=== PATIENT | male | born 1965 | race Caucasian/White ===

== ENCOUNTER → 2016-11-20 | Outpatient (CLI) | payer OTHER ==
[~2016-11-20] VITALS: Ht 185.4 cm; Wt 181.7 kg
[~2016-11-20] MED LIST: ACETAMINOPHEN-1 EAC1 PO; ALLOPURINOL 30300 M2 PO; AMLODIPINE BESY10 MG PO; ASPIRIN EC325 MG PO; ATORVASTATIN CA40 MG PO; BUSPIRONE HCL10 MG PO; CARVEDILOL12.5 MG PO; ERYTHROMYCIN E3.5 G3 OPHTHALMIC; FLOMAX0.4 MG PO; HYDROCODONE-AP1 EAC6 PO; IBUPROFEN 800800 M1 PO; LOPRESSOR25 PO; NABUMETONE 500500 M1 PO; NEURONTIN 300300 M1 PO; NORFLEX100 MG PO; PRED FORTE 1% EY5 M1 OP; PRILOSEC 20 MG20 MG PO; PRILOSEC20 MG PO; PROZAC20 MG PO; RITALIN20 MG PO
--- NOTE | ~2016-11-20 | HPC ---
[facility] [place] [address] PAIN MANAGEMENT CONSULTATION Name: FLAQUITA BOOTH Room #: [facility].#: [id number] Admission: 11/20/16 Attend Phys: Paul Salgado DO Discharge: Date of : 67 Report #: [id number] THIS REPORT FOR: //name// CC: Lucinda Salgado DATE OF SERVICE: 11/20/2016 REFERRING PHYSICIAN: Lucnida Chávez MD CHIEF COMPLAINT: Low back pain, right lower extremity pain with paresthesias. HISTORY OF PRESENT ILLNESS: As you know, the patient is a 51-year-old male who returns today in followup visit stating he is having increasing right low back pain, right lower extremity pain, now involving his entire right leg. He states his pain is aching, constant in sensation, exacerbated with activity, walking, improves with rest and lying down. He places current pain score at 8/10. The patient has been referred back to our service to trial once again a lumbar epidural injection under fluoroscopic guidance in hopes of improving pain. He is denying new injury, new trauma, or changes in medical history since our last visit except for the progression of his symptoms in the right lower extremity. ALLERGIES: No known drug allergies. CURRENT MEDICATIONS: Tamsulosin, amlodipine, ibuprofen, gabapentin, omeprazole, hydrocodone, carvedilol, atorvastatin, aspirin, buspirone, allopurinol, fluoxetine, and methylphenidate. SOCIAL HISTORY: The patient continues to smoke half pack tobacco per day and has done so for greater than 25 years. Denies IV or illicit drug use, admits to approximately 3 alcoholic beverages per week. He is working, not receiving workmen's compensation. He is unaccompanied at today's visit. IMAGING: No new imaging available. PHYSICAL EXAMINATION: VITAL SIGNS: Blood pressure 130/66, pulse 73, respiratory rate 18 and unlabored. The patient is 96% on room air, height 6 feet 1 inch tall, weight 400.6 pounds, and BMI calculated 52.9. GENERAL: Well-developed, well-nourished, well-hydrated, morbidly obese 51-year-old male, appearing stated age, placing current pain score at 8/10. HEENT: Normocephalic, atraumatic. Pupils are equal, round, and reactive to light. Extraocular muscles are intact. EXTREMITIES: Show no clubbing, no cyanosis, and no edema. MUSCULOSKELETAL: Seated straight leg raising negative[place] [address] PAIN MANAGEMENT CONSULTATION Name: FLAQUITA BOOTH Room #: [facility].#: [id number] Admission: 11/20/16 Attend Phys: Paul Salgado DO Discharge: Date of : 67 Report #: [id number] raising positive right. Brock's test negative. Modified Gaenslen's positive for axial low back pain. Ankle clonus is negative. Babinski is negative. Brock's test positive on the right. ASSESSMENT: 1. Lumbar radiculopathy. 2. Lumbosacral spondylosis with radiculopathy. 3. Right hip pain. 4. Chronic intractable pain. PLAN: 1. The patient has returned today in followup visit per the request of his primary team to undergo a repeat lumbar epidural injection under fluoroscopic guidance. The patient and I discussed at length the risks and benefits of a lumbar epidural injection. These risks include, but are not necessarily limited to bleeding, bruising, infection, worsening of pain, no relief of pain, also risk of temporary or permanent muscle weakness, temporary or permanent nerve damage, possible paralysis and . The patient states understood and wished to proceed. 2. No medication changes were made at today's visit. The patient will continue current medical therapy as previously prescribed. 3. We will see the patient back in followup visit on an as needed basis for the next in a series of epidural injections. PROCEDURE NOTE DESCRIPTION OF PROCEDURE: L5-S1 right paramedian epidural steroid injection under fluoroscopic guidance. After obtaining written consent, the patient was taken back to fluoroscopy suite, placed in prone position with pillow under abdomen to decrease lumbar lordosis. Skin overlying the lumbosacral area was prepped and draped in aseptic fashion. Lumbar intervertebral spaces were identified by AP fluoroscopy. Skin and subcutaneous tissue overlying target site of injection was anesthetized with 3 mL of 1% lidocaine. A 20-gauge 4-1/2-inch Tuohy needle advanced under fluoroscopic guidance towards the epidural space using right paramedian approach. Epidural space identified using loss of resistance to air technique. After negative aspiration for heme or cerebrospinal fluid, 1 mL of Omnipaque was injected. Lumbar epidurogram was confirmed using both AP and lateral fluoroscopy. After negative aspiration for heme or cerebrospinal fluid, 5 mL of a solution containing 2 mL 40 mg per mL, 80 mg total triamcinolone, 3 mL lidocaine 1% was injected slowly. Needle retracted [facility], needle tract flushed 3 mL 1% lidocaine. Needle then removed. Sterile bandage placed over injection site. No new motor deficits present in lower extremity following the procedure. [address] [address] PAIN MANAGEMENT CONSULTATION Name: FLAQUITA BOOTH Room #: [facility].#: [id number] Admission: 11/20/16 Attend Phys: Paul Salgado DO Discharge: Date of : 67 Report #: [id number] The patient tolerated the procedure well, carefully escorted to the recovery in stable condition. No apparent complications. After meeting discharge criteria, the patient discharged home. <ELECTRONICALLY SIGNED> By: Paul Salgado DO 11/30/16 0705 1303 1403 Paul Salgado DO /nt
[2016-11-20 08:45] VITALS: BP 130/66
== END | disposition home or self-care (01) ==
LOC: PAIN 07:03
DX: M54.16 Radiculopathy, lumbar region (principal); M47.27 Other spondylosis with radiculopathy, lumbosacral region; G89.29 Other chronic pain; M25.551 Pain in right hip; Z68.43 Body mass index [BMI] 50.0-59.9, adult; F17.200 Nicotine dependence, unspecified, uncomplicated; Z79.899 Other long term (current) drug therapy

== ENCOUNTER → 2017-01-31 | Outpatient (CLI) | payer OTHER ==
--- NOTE | ~2017-01-31 | 2DMMODE ---
[facility] [address] [place] [address] 2 D/M-MODE ECHOCARDIOGRAM Name: LEOBARDOFLAQUITABLAKE MARIANO [facility] [id number] Admission: 01/31/17 Attend Phys: Luis Loco MD Discharge: Date of : 67 Date of Service: 01/31/17 0947 Report #: [id number] THIS REPORT FOR: //name// APPROVED REPORT Study performed: 01/31/2017 08:56:55 EXAM: Comprehensive 2D, Doppler, and color-flow Echocardiogram Patient Location: Out-Patient Status: routine BSA: 2.81 HR: 63 bpm BP: 124/60 mmHg Rhythm: NSR/PVC's Other Information Study Quality: Adequate Indications CAD Hx: HTN, HLP, morbid obesity 2D Dimensions RVDd: 41.31 mm LVEF(%): 73.38 (>50%) IVSd: 11.15 (7-11mm) LVOT Diam: 23.24 (18-24mm) LVDd: 56.55 mm PWd: 11.10 (7-11mm) Ascending Ao: 34.80 (22-36mm) LVDs: 32.28 (25-40mm) Aortic Root: 34.83 mm Cotter's LVEF: 73.38 % Volumes Left Atrial Volume (Systole) Single Plane 4CH: 78.73 mL Single Plane 2CH: 100.42 mL LA ESV Index: 34.00 mL/m2 Aortic Valve AoV Peak Tommie.: 3.00 m/s AO Peak Gr.: 36.02 mmHg LVOT Max P.03 mmHg AO Mean Gr.: 16.84 mmHg AO V2 Mean: 1.92 m/s LVOT Max V: 1.33 m/s AO V2 VTI: 62.79 cm TRISTIAN Vmax: 1.87 cm2 [facility] [place] [address] 2 D/M-MODE ECHOCARDIOGRAM Name: FLAQUITA BOOTH [facility] [id number] Admission: 01/31/17 Attend Phys: Luis Loco MD Discharge: Date of : 67 Date of Service: 01/31/17 0947 Report #: [id number] Mitral Valve E/A Ratio: 1.3 MV Decel. Time: 189.96 ms MV E Max Tommie.: 1.23 m/s MV A Tommie.: 0.92 m/s MV PHT: 55.09 ms IVRT: 55.36 ms Pulmonary Valve PV Peak Tommie.: 1.22 m/s PV Peak Gr.: 5.99 mmHg Pulmonary Vein P Vein S: 0.82 m/s P Vein A: 0.32 m/s P Vein D: 0.72 m/s P Vein A Dur.: 115.3 msec P Vein S/D Ratio: 1.14 Tricuspid Valve TR Peak Tommie.: 2.45 m/s RAP Estimate: 5.00 mmHg TR Peak Gr.: 24.09 mmHg PA Pressure: 29.00 mmHg Left Ventricle The left ventricle is normal size. There is normal LV segmental wall motion. There is normal left ventricular wall thickness. Left ventricular systolic function is normal. LVEF is 60-65%. Moderate diastolic dysfunction is present (pseudonormal filling). Right Ventricle Right ventricle is at the upper limits of normal. The right ventricular systolic function is normal. Atria Left atrium is mildly dilated. Right atrium is at the upper limits of normal. Aortic Valve Aortic valve is calcified. Trace aortic regurgitation. Mild aortic stenosis, with maximum pressure gradient of 36 mmHg and mean pressure gradient of 17 mmHg. Mitral Valve Mitral valve leaflets are mildly thickened. Trace mitral regurgitation. Tricuspid Valve The tricuspid valve is normal in structure. Trace to mild tricuspid [address] [address] 2 D/M-MODE ECHOCARDIOGRAM Name: FLAQUITA BOOTH [facility] [id number] Admission: 01/31/17 Attend Phys: Luis Loco MD Discharge: Date of : 67 Date of Service: 01/31/17 0947 Report #: [id number] regurgitation. Estimated PAP is 29mmHg. Pulmonic Valve The pulmonary valve is normal in structure. Trace pulmonic regurgitation. Great Vessels The aortic root is normal in size. The ascending aorta is normal in size. IVC is normal in size and collapses >50% with inspiration. Pericardium There is no pericardial effusion. <Conclusion> The left ventricle is normal size. Left ventricular systolic function is normal. Left atrium is mildly dilated. Mild aortic stenosis, with maximum pressure gradient of 36 mmHg and mean pressure gradient of 17 mmHg. Trace mitral regurgitation. Trace to mild tricuspid regurgitation. Estimated PAP is 29mmHg. <ELECTRONICALLY SIGNED> By: Luis Loco MD 01/31/1747 6 6 Luis Loco MD /INF
== END ==
LOC: CV 08:46
DX: I25.10 Atherosclerotic heart disease of native coronary artery without angina pectoris (principal); I10 Essential (primary) hypertension; I35.0 Nonrheumatic aortic (valve) stenosis

== ENCOUNTER 2017-04-25 05:17 | Day surgery (SDC) | payer OTHER ==
[~2017-04-25] VITALS: Ht 185.4 cm; Wt 179.2 kg
--- NOTE | ~2017-04-25 | O ---
[facility] [place] [address] [place] [address] OPERATIVE REPORT Name: LEOBARDOFLAQUITA MARIANO Room #: [facility]..#: [id number] Admission: 04/25/17 Attend Phys: Pratik De La Torre MD, F Discharge: 04/26/17 Date of : 67 Report #: [id number] THIS REPORT FOR: //name// CC: Lucinda De La Torre DATE OF SERVICE: 04/25/2017 SURGEON: Pratik De La Torre MD. WORKERS COMPENSATION CLAIMS SPECIALIST: Francia Dmuont MD. PREOPERATIVE DIAGNOSES: 1. Super morbid obesity (body mass index 51). 2. Coronary artery disease. 3. Gastroesophageal reflux disease. 4. Hypertension. 5. Sleep apnea. 6. Hyperlipidemia. 7. Depression. 8. Arthritis. POSTOPERATIVE DIAGNOSES: 1. Super morbid obesity (body mass index 51). 2. Coronary artery disease. 3. Gastroesophageal reflux disease. 4. Hypertension. 5. Sleep apnea. 6. Hyperlipidemia. 7. Depression. 8. Arthritis. PROCEDURE: Laparoscopic sleeve gastrectomy with EGD. ANESTHESIA: General endotracheal anesthesia and local anesthetic. ESTIMATED BLOOD LOSS: 10 mL. SPECIMEN: Lateral stomach. COMPLICATIONS: None appreciated. INDICATIONS FOR PROCEDURE: This is a 52-year-old male patient standing 6 feet 1 inch and weighing 396 pounds at his most recent office visit with a BMI of 51. He has tried numerous weight loss programs and plans including specialized diets, exercises and [id number] medications. Any amount of weight he has [facility] [address] [place] [address] OPERATIVE REPORT Name: FLAQUITA BOOTH Room #: [facility].#: [id number] Admission: 04/25/17 Attend Phys: Pratik De La Torre MD, F Discharge: 04/26/17 Date of : 67 Report #: [id number] lost, he has quickly regained plus additional weight after stopping the modality. He has numerous weight associated comorbid conditions and complaints. He has been cleared from a multidisciplinary standpoint and presents now for laparoscopic sleeve gastrectomy with EGD. OPERATIVE FINDINGS: On EGD, the patient's esophagus was normal down to the GE junction and Z-line measured at 40 cm from the teeth. There was no evidence for hiatal hernia. The stomach and duodenum to the third portion were also normal without polyps, masses, diverticula, or ulcers. Likewise, on retroflexion of the scope, there was no evidence for hiatal hernia. Laparoscopically, the patient had an enlarged liver and stomach. His small bowel and colon in the surrounding area appeared otherwise normal. The gastric sleeve staple line was located 4 cm lateral/proximal to the pylorus, 3 cm lateral to the incisura of the stomach, and 1 cm lateral to the GE junction. There was no evidence for staple line leak. The leak test was negative, whereby no air bubbles were seen forming in the Tisseel immediately after its application with insufflation of carbon dioxide into the gastric sleeve. Endoluminally, there was no bleeding within the sleeve and the contour of the sleeve was smoothe without sharp angles. No other significant intra-abdominal pathology was seen. The excised stomach held 1250 mL of fluid on the back table. At the conclusion of the operation, there was no evidence for iatrogenic injury. The sponge, needle and instrument counts were correct. The patient tolerated the procedure well and was returned to the recovery room in stable condition. DESCRIPTION OF PROCEDURE IN DETAIL: After the benefits and risks of the procedure were explained to the patient which include but are not limited to risks of bleeding, infection, postoperative pain, postoperative expectations and risks of DVT and pulmonary embolus, informed consent was obtained. The patient was identified in the preoperative holding area. The patient was given IV antibiotics as documented in the chart in line with SCIP protocol. The patient was then taken to the operating room and was placed in the supine position. The patient was given IV sedation and was intubated without incident. SCDs were placed on the patient's bilateral lower extremities prior to induction of anesthesia. The patient had been placed in the modified low lying dorsal lithotomy position in stirrups on the beanbag. The beanbag and the patient were taped to the bed to secure the patient. A time-out was then performed to correctly identify the patient and procedure. An orogastric tube was placed by anesthesia. A bite block was placed and the fiberoptic EGD scope was passed into the patient's oropharynx, down the esophagus, into the stomach, and into the third portion of the duodenum. Findings are as noted above. The scope was slowly withdrawn into the antrum and the scope was retroflexed. The hiatus was visualized. The scope was then straightened and the end of the gastroscope was placed at the pylorus. The [facility] [address] [place] [address] OPERATIVE REPORT Name: FLAQUITA BOOTH Room #: [facility].R.#: [id number] Admission: 04/25/17 Attend Phys: Pratik De La Torre MD, F Discharge: 04/26/17 Date of : 67 Report #: [id number] stomach was decompressed with the scope. The patient's abdomen was then prepped and draped in the standard sterile fashion with surgical prep. Local anesthetic was infiltrated into the skin and subcutaneous tissue in the left supraumbilical area where a sharp #15-blade scalpel was used to make a 5-mm incision. The 5-mm Visiport was placed intraperitoneally with the 5-mm 0-degree angled laparoscope. Pneumoperitoneum was then achieved with insufflation of carbon dioxide to 15 mmHg. A 5-mm 30-degree angled laparoscope was then inserted. The 15-mm port was placed in the right supraumbilical area after local anesthetic was infiltrated into the skin and subcutaneous tissue and an appropriately sized incision was made. Two additional 5 mm ports were placed in the left abdomen after local anesthetic was infiltrated and incisions were made. All ports were placed under direct visualization. The patient was then placed in reverse Trendelenburg position. Local anesthetic was infiltrated into the skin and subcutaneous tissue in the subxiphoid area and a 5-mm incision was made through which a 5-mm obturator was passed into the abdominal cavity through the fascia to create a passageway for the Fox liver retractor. The retractor was placed to retract the liver anteriorly. The retractor was held in place with the [employer] apparatus. All abdominal adhesions were then taken down with blunt dissection, sharp dissection and judicious use of the ultrasonic dissector. The gastrosplenic ligament and short gastric vessels were then divided using the ultrasonic dissector with appropriate traction. Bleeding points were made hemostatic with the ultrasonic dissector. Dissection was carried proximally up to the left martell of the diaphragm. The distal end point of dissection was then measured at 4 cm proximal to the pylorus. The short gastric vessels and gastrocolic ligaments were dissected to that level. The stomach was then rotated medially to visualize any posterior attachments/adhesions to the stomach. The adhesions were dissected with a combination of sharp dissection and use of the ultrasonic dissector. The endoscope was then slightly withdrawn to place it along the lesser curvature of the stomach. Suction was applied to the orogastric tube which was then removed, leaving the endoscope in place as a 34-Lao bougie. The gastric sleeve was then created. Two black loads of the powered endoscopic ADAM stapler buttressed with Kathy-Strips were used to staple and divide the stomach 4 cm proximal to the pylorus moving proximally. Additional green loads buttressed with Kathy-strips were used to staple off the remainder of the stomach using the endoscope as the bougie. Care was taken to ensure that greater than 3 cm of space was present between the incisura and the staple line. The stomach was fully transected and placed in the right upper quadrant of the abdomen for later removal. 14 ml of Tisseel was applied to the entire length of the staple line with the [employer] aerosolizer to fully ensure hemostasis and to help seal the staple line. [address] [address] OPERATIVE REPORT Name: FLAQUITA BOOTH Room #: [facility].R.#: [id number] Admission: 04/25/17 Attend Phys: Pratik De La Torre MD, F Discharge: 04/26/17 Date of : 67 Report #: [id number] The leak test was performed next. The sleeve was insufflated with the endoscope which was slowly withdrawn immediately after application of the Tisseel. No air bubbles were seen in the Tisseel laparoscopically. Endoluminally, no bleeding was seen. The stomach was fully decompressed and the scope was slowly withdrawn. The Fox liver retractor was then loosened from the [employer] apparatus and it was removed without difficulty. The stomach was then removed from the patient's body through the 15-mm port under direct visualization. A small amount stretching of the fascia was required to create an opening large enough for removal of the stomach. After its removal, the 15-mm port site fascial opening was closed with an 0-PDS suture using the Surjit-Kiko laparoscopic fascial closure device. All ports were removed after the abdominal cavity was desufflated. The fascial suture was tied. Interrupted subcuticular 4-0 Monocryl sutures and Dermabond were used to close all skin incisions. The patient tolerated the procedure well. The patient was awakened, extubated and taken to the recovery room in stable condition with no apparent intraoperative complications. <ELECTRONICALLY SIGNED> By: Pratik De La Torre MD, FACS 05/03/17 1007 1516 1546 Pratik De La Torre MD, FACS /nt
--- NOTE | ~2017-04-25 | S ---
[facility] [place] [address] [place] [address] SURGICAL PATH RPT PROCEDURE Name: FLAQUITA BOOTH MONTSERRAT Room #: [facility] M.R.#: [id number] Admission: 04/25/17 Date of : 67 Discharge: 04/26/17 Report #: [id number] Path Case #: [id number] PATHOLOGY REPORT COLLECTION DATE: 04/25/2017 RECEIVED DATE: 04/25/2017 SUBMITTING PHYS: Dr. Pratik De La Torre OTHER PHYS: Dr. Lucinda Chávez SPECIMEN(S) RECEIVED: A.Gastric sleeve * * * * * * * * * * * * FINAL DIAGNOSIS: Stomach, "gastric sleeve", partial gastrectomy: - Portion of stomach with focal mild chronic inflammation. (SKM:[facility]; 04/26/2017) PATHOLOGIST: Rolo Horn M.D. REPORT ELECTRONICALLY SIGNED BY: Rolo Horn M.D. DATE/TIME: 04/26/2017 14:26 * * * * * * * * * * * * GROSS PATHOLOGY: The specimen is received in formalin, labeled "Flaquita Booth, gastric sleeve". Received is a partial gastrectomy specimen with a stapled margin of resection measuring 24.4 x 5.5 cm in greatest dimensions. The serosal surface is pink-mi, smooth, and dusky. Opening the specimen reveals a pink-mi mucosa displaying is normal architectural folds. No polyps or mass lesions identified. The specimen is submitted representatively in cassettes A1-A3. (SDY; 04/25/2017) CLINICAL HISTORY: Morbid obesity INITIAL CPT CODE(S): A; 99430 Professional services performed by [facility] at [facility] [address], [place] [address] Technical services performed by [facility] at [address] [place] [address] [id number] [facility] [address] [place] [address] SURGICAL PATH RPT PROCEDURE Name: FLAQUITA BOOTH Room #: [facility] [place]#: [id number] Admission: 04/25/17 Date of : 67 Discharge: 04/26/17 Report #: [id number] Path Case #: [id number] [facility] [address] [address] PHONE: [phone] DIRECTOR: Vickey Valerio M.D. * * * END OF REPORT * * *
[~2017-04-25 05:17] MED LIST changes: +NORCO 5-325 TA1 EACH PO
[2017-04-25 07:04] VITALS: BP 145/88
[2017-04-25 12:00] VITALS: BP 159/99
[2017-04-25 13:00] VITALS: BP 157/100
[2017-04-25 14:00] VITALS: BP 157/91
[2017-04-25 15:00] VITALS: BP 154/92
[2017-04-25 20:00] VITALS: BP 154/98
[2017-04-26] VITALS: BP 151/98
[2017-04-26 04:00] VITALS: BP 148/87
[2017-04-26 05:35] LABS: HEMATOCRIT 39.8 % (42.0-52.0); HEMOGLOBIN 13.9 gm/dL (14.0-18.0); MCH 32.1 pg (26.0-34.0); MCHC 34.8 g/dL (28.0-37.0); MCV 92.1 fL (80.0-100.0); PLATELET COUNT 212 thou/uL (150-400); RBC 4.32 mil/uL (4.50-6.00); RDW 13.4 % (10.5-14.5); WBC 14.6 thou/uL (4.0-11.0)
[2017-04-26 05:52] LABS: CALCIUM 9.3 mg/dL (8.5-10.1); CREATININE 0.8 mg/dL (0.7-1.3); POTASSIUM 3.4 mmol/L (3.5-5.1)
[2017-04-26 06:03] LABS: ABSOLUTE NEUTROPHILS 12.7 thou/uL (1.4-8.2); ATYPICAL LYMPHS 1 %
[2017-04-26 08:00] VITALS: BP 153/99
[2017-04-26] MEDS ORDERED: HYDROCODONE-ACE15 ML PO (10:57)
[2017-04-26 11:10] VITALS: BP 153/99
[2017-08-21] MEDS ORDERED: HYDROCHLOROTH12.5 M1 PO (11:59)
[2017-08-21] MEDS ORDERED: MAG PO (12:00)
[2017-08-21] MEDS ORDERED: MULTIVITAMINS1 EAC7 PO (12:00)
[2017-08-21] MEDS ORDERED: VITAMIN D3 PO (12:00)
[2017-08-21] MEDS ORDERED: VITAMIN C PO (12:00)
[2017-08-21] MEDS ORDERED: IRON PO (12:00)
[2017-08-21] MEDS ORDERED: VITAMIN B-12500 MCG PO (12:00)
[2017-08-28] MEDS ORDERED: ASPIR 8181 MG PO (13:44)
== END 2017-04-26 11:35 | disposition home or self-care (01) ==
LOC: TBA 05:17 → OR 05:17 → 4N 09:56 → OR 10:11 → ENTRNSPT 04-26 11:20 → EDTRNSPTSTS 04-26 11:32 → OR 04-26 11:35
PROVIDERS: Surgery
DX: E66.01 Morbid (severe) obesity due to excess calories (principal); K21.9 Gastro-esophageal reflux disease without esophagitis; I11.9 Hypertensive heart disease without heart failure; I25.10 Atherosclerotic heart disease of native coronary artery without angina pectoris; G47.33 Obstructive sleep apnea (adult) (pediatric); E78.00 Pure hypercholesterolemia, unspecified; M10.9 Gout, unspecified; E78.5 Hyperlipidemia, unspecified; F32.89 Other specified depressive episodes; M19.90 Unspecified osteoarthritis, unspecified site; Z68.43 Body mass index [BMI] 50.0-59.9, adult; Z98.890 Other specified postprocedural states; Z79.899 Other long term (current) drug therapy; Z87.891 Personal history of nicotine dependence; Z95.5 Presence of coronary angioplasty implant and graft; Z79.891 Long term (current) use of opiate analgesic
CPT/HCPCS: 50010; 50101; 50222; 50249; 50290; 50386; 50555; 50558; 50740; 50962; 51436; 51437; 51489; 52182; 52265; 53307; 53311; 54022; 54118; 56462; 56525; 56526; 57092; 62110; 62900; 64031; 70005

== ENCOUNTER 2017-09-09 05:32 | Inpatient (IN) | payer OTHER ==
[2017-08-28 13:34] LABS: HEMATOCRIT 41.2 % (42.0-52.0); HEMOGLOBIN 14.3 gm/dL (14.0-18.0); MCH 31.9 pg (26.0-34.0); MCHC 34.8 g/dL (28.0-37.0); MCV 91.5 fL (80.0-100.0); RBC 4.5 mil/uL (4.50-6.00); WBC 10.2 thou/uL (4.0-11.0)
[2017-08-28 13:38] LABS: URINE BILIRUBIN NEGATIVE (Negative); URINE BLOOD NEGATIVE (Negative); URINE CLARITY CLEAR; URINE COLOR YELLOW; URINE GLUCOSE-RANDOM* NEGATIVE (Negative); URINE KETONES NEGATIVE (Negative); URINE LEUKOCYTES-REFLEX NEGATIVE (Negative); URINE NITRITE-REFLEX NEGATIVE (Negative); URINE PROTEIN (DIPSTICK) NEGATIVE (Negative); URINE SPECIFIC GRAVITY 1.015 (1.005-1.035); URINE UROBILINOGEN 0.2 E.U./dl (0.2-1.0)
[2017-08-28 13:45] LABS: ALBUMIN 4.1 g/dL (3.4-5.0); CALCIUM 9.5 mg/dL (8.5-10.1); POTASSIUM 3.1 mmol/L (3.5-5.1)
[2017-08-28 13:49] LABS: INR 1.1; PROTIME 11.2 Seconds (9.3-11.4)
[2017-09-09] VITALS (8 sets, daily range): BP systolic 146–158; BP diastolic 82–95
[~2017-09-09] VITALS: Ht 185.4 cm; Wt 134.3 kg
--- NOTE | ~2017-09-09 | O ---
[place] [address] OPERATIVE REPORT Name: FLAQUITA BOOTH Room #: 408-P ADM IN M.R.#: [id number] Admission: 09/09/17 Attend Phys: Taran Lackey MD Discharge: Date of : 67 Report #: [id number] THIS REPORT FOR: //name// CC: Lucinda Lackey DATE OF SERVICE: 09/09/2017 PREOPERATIVE DIAGNOSES: 1. Severe right hip osteoarthritis. 2. Morbid obesity, BMI 42. POSTOPERATIVE DIAGNOSES: 1. Severe right hip osteoarthritis. 2. Morbid obesity, BMI 42. PROCEDURE: Right total hip arthroplasty. SURGEON: Taran Lackey MD. RIM TURNING MACHINE OPERATOR: Kristy Pritchard PA-C. INDICATIONS FOR ASSISTANCE: Throughout the case, extensive retraction and manipulation of the hip including dislocation and reduction of the hip was required. This was afforded to me by my oncology physician assistant ANESTHESIA: LMA. IMPLANTS: [employer] size 16 high offset Synergy press-fit femur, size 60 R3 acetabular cup with 1 acetabular screw, a size 40+4 Oxinium head. ESTIMATED BLOOD LOSS: 100 mL. COMPLICATIONS: None. SPECIMENS: None. CONDITION UPON LEAVING THE OPERATING ROOM: Stable. INDICATION FOR PROCEDURE: The patient is a 52-year-old gentleman with severe right hip osteoarthritis with flattening of the femoral head and some erosion of his acetabulum. He had failed conservative treatment for this and after discussion with him, he elected for right total hip arthroplasty. DESCRIPTION OF PROCEDURE: Risks, benefits, alternatives, complications were discussed in detail with the patient including but not limited to risk of [address] [place] [address] OPERATIVE REPORT Name: FLAQUITA BOOTH Room #: 408-P ADM IN M.R.#: [id number] Admission: 09/09/17 Attend Phys: Taran Lackey MD Discharge: Date of : 67 Report #: [id number] anesthesia, risk of damage to nerves, arteries, blood vessels, risk for infection, bleeding, risk for continued hip pain, leg length discrepancy, instability and need for reoperation. Informed consent was obtained from the patient. Right hip was appropriately marked in the preoperative holding area. IV Ancef was given for preoperative antibiotics. He was brought to the operating room and placed in supine position on operating room table. LMA anesthesia was induced without complication. He was then placed in the left lateral decubitus position with right hip uppermost. Right hip and lower extremity were prepped and draped in normal sterile fashion. Timeout was performed properly identifying the patient and procedure as well as the instrumentation and implants. All in the operating room were in agreement. Standard posterior approach to the hip was made with 10 blade through the skin. Dissection was taken down to the fascia with Bovie cautery, and a Mendoza elevator was used to clean off the fascia. Fresh 10 blade was used to make a fascial incision. This was taken proximally and distally with curved Holman scissor. Charnley retractor was placed. Trochanteric bursa was taken down with Bovie cautery. Piriformis tendon was identified, tagged and taken down with Bovie. Short external rotators were also taken down with Bovie cautery. Capsulotomy was made and capsule ends were tagged for later repair. Hip was dislocated, and there was extensive osteoarthritic change of the femoral head with flattening of the head and osteophyte formation. Femoral neck cut was then made 1 cm proximal to lesser trochanter based on preoperative templating. Femoral head was removed. Deep acetabular retractors were placed. The labrum was removed sharply. Pulvinar was removed with Bovie cautery. Acetabulum was then sequentially reamed up to a size 60, at which point, there was excellent bleeding cancellous bone. This was trialed with a size 59 trial and found to have a good fit. A final size 60 R3 acetabular cup was placed, and 2 acetabular screws were placed for backup fixation. The polyethylene liner for a size 40 head was placed. Attention was then turned to the femur. This was reamed and broached up to a size 16, at which point, the size 16 broach was stable. This was trialed with a high offset neck and a 40+4 head. Hip was reduced, taken through range of motion, found to be stable, found to have a short leg length on the right compared to left. It was felt this could be made up for with final implant. Hip was dislocated and broach was removed. Final size 16 high offset Synergy press fit stem was placed. This was trialed with a 40+4 head. Hip was reduced, taken through range of motion, found to be stable, found to have equal leg lengths. Hip was dislocated one last time, and a final size 40+4 Oxinium head was placed. Hip was reduced, taken through range of motion, found to be stable, found to have equal leg lengths. Wound was thoroughly irrigated with normal saline. Periarticular injection consisting of morphine, ropivacaine, epinephrine and Toradol was placed around the hip joint. The piriformis and capsule were repaired with 0 fiberwire. Fascia was closed with 0 vicryl. Incision was closed with 2-0 vicryl, 4-0 monocryle, dermabond and DI dressing was applied. He was then taken to the [address] [address] OPERATIVE REPORT Name: FLAQUITA BOOTH Room #: 408-P [facility] IN M.R.#: [id number] Admission: 09/09/17 Attend Phys: Taran Lackey MD Discharge: Date of : 67 Report #: [id number] recovery room under the care of Anesthesia postoperatively. <ELECTRONICALLY SIGNED> By: Taran Lackey MD 09/10/17 1231 [id number] Taran Lackey MD /nt
[~2017-09-09 05:32] MED LIST changes: +ASPIR 8181 MG PO; +HYDROCHLOROTH12.5 M1 PO; +HYDROCODONE-ACE15 ML PO; +IRON PO; +MAG PO; +MULTIVITAMINS1 EAC7 PO; +VITAMIN B-12500 MCG PO; +VITAMIN C PO; +VITAMIN D3 PO
[2017-09-10] VITALS: BP 132/59
[2017-09-10 03:00] VITALS: BP 130/58
[2017-09-10 06:07] LABS: HEMATOCRIT 29.7 % (42.0-52.0); HEMOGLOBIN 10.4 gm/dL (14.0-18.0); MCH 32.8 pg (26.0-34.0); MCHC 35.2 g/dL (28.0-37.0); MCV 93.3 fL (80.0-100.0); RBC 3.18 mil/uL (4.50-6.00); RDW 13.1 % (10.5-14.5); WBC 12.1 thou/uL (4.0-11.0)
[2017-09-10 07:03] VITALS: BP 127/64
[2017-09-10 19:54] VITALS: BP 126/67
[2017-09-11 04:50] VITALS: BP 116/57
[2017-09-11 05:50] LABS: HEMATOCRIT 25.2 % (42.0-52.0); HEMOGLOBIN 9.1 gm/dL (14.0-18.0); MCH 33.6 pg (26.0-34.0); MCV 93.5 fL (80.0-100.0); RBC 2.7 mil/uL (4.50-6.00); RDW 12.9 % (10.5-14.5); WBC 10.9 thou/uL (4.0-11.0)
[2017-09-11 08:40] VITALS: BP 115/51
[2017-09-11 13:45] VITALS: BP 115/51
== END 2017-09-11 14:10 | disposition home or self-care (01) | DRG 470 ==
LOC: 4N 05:32 → TBA 05:32 → PRE 05:54 → 4N 17:00 → ENTRNSPT 09-11 14:05 → EDTRNSPTSTS 09-11 14:08 → 4N 09-11 14:10
PROVIDERS: Orthopaedic Surgery
PROC: 0SR906A Replacement of Right Hip Joint with Oxidized Zirconium on Polyethylene Synthetic Substitute, Uncemented, Open Approach (ICD-10-PCS; principal; 2017-09-09)
DX: M16.11 Unilateral primary osteoarthritis, right hip (principal); E66.01 Morbid (severe) obesity due to excess calories; M10.9 Gout, unspecified; I10 Essential (primary) hypertension; E78.5 Hyperlipidemia, unspecified; F90.9 Attention-deficit hyperactivity disorder, unspecified type; K21.9 Gastro-esophageal reflux disease without esophagitis; I25.10 Atherosclerotic heart disease of native coronary artery without angina pectoris; F32.9 Major depressive disorder, single episode, unspecified; Z68.39 Body mass index [BMI] 39.0-39.9, adult; Z87.891 Personal history of nicotine dependence; Z79.899 Other long term (current) drug therapy
CPT/HCPCS: 10790; 50010; 50101; 50382; 50414; 51771; 53000; 53078; 53367; 54118; 56524; 56527; 56528; 56530; 57095; 62110; 62900; 70005

== ENCOUNTER 2020-02-20 10:45 | Emergency (ER) | payer OTHER ==
[~2020-02-20] VITALS: Ht 185.4 cm; Wt 120.2 kg
[2020-02-20] MEDS ORDERED: VENLAFAXINE HC150 M1 PO (11:21)
[2020-02-20] MEDS ORDERED: NALTREXONE HCL50 MG PO (11:22)
[2020-02-20] MEDS ORDERED: PROBIOTIC1 EAC2 PO (11:47)
[2020-02-20] MEDS ORDERED: CLEOCIN HCL300 MG PO (11:47)
[2020-02-20 12:01] VITALS: BP 130/98
== END 2020-02-20 12:05 | disposition home or self-care (01) ==
LOC: ER 10:45
DX: S31.811A Laceration without foreign body of right buttock, initial encounter (principal); I10 Essential (primary) hypertension; E78.5 Hyperlipidemia, unspecified; F90.9 Attention-deficit hyperactivity disorder, unspecified type; K21.9 Gastro-esophageal reflux disease without esophagitis; E66.01 Morbid (severe) obesity due to excess calories; Z79.899 Other long term (current) drug therapy; Z68.35 Body mass index [BMI] 35.0-35.9, adult; W20.8XXA Other cause of strike by thrown, projected or falling object, initial encounter; Y93.89 Activity, other specified; Y92.098 Other place in other non-institutional residence as the place of occurrence of the external cause; Y99.8 Other external cause status

== ENCOUNTER 2021-03-19 | Emergency (ER) | payer OTHER ==
[~2021-03-19] VITALS: Ht 188 cm; Wt 113.4 kg
[~2021-03-19] MED LIST changes: +CLEOCIN HCL300 MG PO; +NALTREXONE HCL50 MG PO; +PROBIOTIC1 EAC2 PO; +VENLAFAXINE HC150 M1 PO
[2021-03-19 00:33] LABS: ABSOLUTE NEUTROPHILS 3.6 thou/uL (1.4-8.2); BASOPHILS 0.6 % (0.0-2.0); EOSINOPHILS 2.7 % (0.0-3.0); HEMATOCRIT 34.4 % (42.0-52.0); HEMOGLOBIN 11.9 gm/dL (14.0-18.0); MCH 36.3 pg (26.0-34.0); MCHC 34.7 g/dL (28.0-37.0); MCV 104.8 fL (80.0-100.0); MONOCYTES 9.3 % (1.0-8.0); PLATELET COUNT 109 thou/uL (150-400); POLYS 66.4 % (36.0-66.0); RBC 3.28 mil/uL (4.50-6.00); RDW 13.3 % (10.5-14.5); WBC 5.5 thou/uL (4.0-11.0)
[2021-03-19 01:00] LABS: CALCIUM 9.4 mg/dL (8.5-10.1); CREATININE 0.7 mg/dL (0.7-1.3)
[2021-03-19 01:06] LABS: ALBUMIN 3.2 g/dL (3.4-5.0); DIRECT BILIRUBIN 0.4 mg/dL (<0.1-0.2); MAGNESIUM 1.1 mg/dL (1.8-2.4); TOTAL BILIRUBIN 1.2 mg/dL (0.2-1.0); TOTAL PROTEIN 6.1 g/dL (6.4-8.2)
[2021-03-19 01:18] LABS: POTASSIUM 2.9 mmol/L (3.5-5.1)
[2021-03-19 04:50] LABS: CALCIUM 8.9 mg/dL (8.5-10.1); CREATININE 0.6 mg/dL (0.7-1.3); MAGNESIUM 1.6 mg/dL (1.8-2.4)
[2021-03-19 04:56] LABS: POTASSIUM 2.9 mmol/L (3.5-5.1)
[2021-03-19] MEDS ORDERED: KLOR-CON M2020 MEQ PO (04:58)
[2021-03-19 05:08] VITALS: BP 115/74
== END 2021-03-19 05:10 | disposition home or self-care (01) ==
LOC: ER
PROVIDERS: Student in an Organized Health Care Education/Training Program
DX: E83.42 Hypomagnesemia (principal); Z20.822 Contact with and (suspected) exposure to COVID-19; R11.2 Nausea with vomiting, unspecified; E87.6 Hypokalemia; I10 Essential (primary) hypertension; E78.5 Hyperlipidemia, unspecified; F90.9 Attention-deficit hyperactivity disorder, unspecified type; K21.9 Gastro-esophageal reflux disease without esophagitis; Z79.899 Other long term (current) drug therapy